=== PATIENT | male | born 1940 | race Caucasian/White ===

== ENCOUNTER → 2017-06-05 | Outpatient (CLI) | payer MEDICARE ==
[~2017-06-05] MED LIST: ASPI-496 PO; CAND1TAB13 PO; CLOP75TA52 PO; LEVO150T5 PO; METO50TA82 PO; POTA10TA6 PO; ROSU20TA PO
== END | disposition home or self-care (01) ==
LOC: STAR 14:38
PROVIDERS: ATTEND Orthopaedic Surgery
DX: Z01.818 Encounter for other preprocedural examination (principal); G56.02 Carpal tunnel syndrome, left upper limb; I45.10 Unspecified right bundle-branch block
CPT/HCPCS: 93005

== ENCOUNTER 2017-06-09 13:16 | Day surgery (SDC) | payer MEDICARE, OTHER ==
[~2017-06-09] VITALS: Ht 188 cm; Wt 94.0 kg
[2017-06-09] MEDS ORDERED: LACTATED RINGERS 1,000 ML IV SCH (13:50)
[2017-06-09] MEDS ORDERED: EPINEPHRINE 1 MG/ML, 1ML ONE (14:40)
[2017-06-09] MEDS ORDERED: BUPIVACAINE/PF 0.5% ONE (14:40)
[2017-06-09] MEDS ORDERED: BACITRACIN 50,000 UNIT ONE (14:40)
[2017-06-09] MEDS ORDERED: KETOROLAC 30 MG/1 ML ONE (14:59)
[2017-06-09] MEDS ORDERED: PROPOFOL 10 MG/ML, 20ML ONE (14:59)
[2017-06-09] MEDS ORDERED: ONDANSETRON 2MG/ML, 2ML ONE (14:59)
[2017-06-09] MEDS ORDERED: CEFAZOLIN 1,000 MG ONE (14:59)
[2017-06-09] MEDS ORDERED: DEXAMETHASONE 4 MG/ML, 1ML ONE (14:59)
[2017-06-09] MEDS ORDERED: ACETAMINOPHEN 325 MG TABLET PO PRN (15:00)
[2017-06-09] MEDS ORDERED: PROMETHAZINE 12.5 MG SUPP PR PRN (15:00)
[2017-06-09] MEDS ORDERED: MEPERIDINE/PF 25MG/0.5ML IVPush PRN (15:00)
[2017-06-09] MEDS ORDERED: ONDANSETRON 2MG/ML, 2ML IVPush PRN (15:00)
[2017-06-09] MEDS ORDERED: OXYcodone 5 MG/5 ML ORAL.SOL UDC PO PRN (15:00)
[2017-06-09] MEDS ORDERED: hydrALAzine 20 MG/ML, 1ML IV PRN (15:00)
[2017-06-09] MEDS ORDERED: FENTANYL PF 100 MCG/2ML IV PRN (15:00)
[2017-06-09] MEDS ORDERED: morphine SULFATE 10 MG/ML, 1ML IV PRN (15:00)
[2017-06-09] MEDS ORDERED: LABETALOL 5MG/ML, 20ML IV PRN (15:00)
[2017-06-09] MEDS ORDERED: OXYcodone 5 MG/5 ML ORAL.SOL UDC ONE (15:48)
== END 2017-06-09 17:00 ==
LOC: OUT 13:16
PROVIDERS: ATTEND Orthopaedic Surgery
DX: G56.02 Carpal tunnel syndrome, left upper limb (principal); I25.10 Atherosclerotic heart disease of native coronary artery without angina pectoris; Z88.1 Allergy status to other antibiotic agents; Z87.39 Personal history of other diseases of the musculoskeletal system and connective tissue
CPT/HCPCS: 29848; J0171; J0690; J1100; J1885; J2405; J2704; J3490